=== PATIENT | female | born 1965 | race African-American/Black ===

== ENCOUNTER 2022-05-18 18:50 | Inpatient (IN) | payer OTHER, SELFPAY ==
[2022-05-18 19:43] LABS: Bilirubin Neg (Negative); Blood, Urine 50 (Negative); Clarity Clear (Clear); Glucose, Urine (Dipstick) Normal (Negative); Ketone, Urine 5 mg/dL (Negative); Leukocyte 25 (Negative); Nitrite Negative (Negative); Protein, Urine (Dipstick) 15 mg/dl (Neg-Trace); Specific Gravity, Urine 1.025 (1.002-1.036)
[2022-05-18 19:50] LABS: Bacteria/HPF Rare-Few HPF (None Seen); Mucous/LPF 1+ LPF (<2+); WBC/HPF 0-3 HPF (0-3)
[2022-05-18 19:51] LABS: Amphetamine Not Detected (NotDetected); Barbiturates Screen Not Detected (NotDetected); Benzodiazepine Screen Not Detected (NotDetected); Cocaine Metabolite Screen Not Detected (NotDetected); Methadone Not Detected (NotDetected); Methamphetamine Not Detected (NotDetected); Opiate Screen Not Detected (NotDetected); Oxycodone Screen Not Detected (NotDetected); Phencyclidine (PCP) Not Detected (NotDetected); THC/Cannabinoid Screen Not Detected (NotDetected); Tricyclic Screen Not Detected (NotDetected)
[2022-05-18 21:01] LABS: #Eosinphils 0.4 10x3/uL (0.0-0.5); #Monocytes 0.6 10x3/uL (0.0-1.1); #Neutrophils 2.7 10x3/uL (1.5-8.4); %Basophils 0.7 % (0.0-2.0); %Eosinophils 6.6 % (0.0-6.0); %Lymphocytes 37.4 % (18.0-47.0); %Monocytes 9.9 % (0.0-10.0); %Neutrophils 45.2 % (40.0-75.0); Hemoglobin 11.8 g/dL (12.0-15.5); Mean Corpuscular HGB CONC 32.8 g/dL (32.0-36.0); Mean Corpuscular Hemoglobin 30.6 pg (27.0-33.0); Mean Corpuscular Volume 93.3 fl (81.6-98.3); Mean Platelet Volume 10.4 fl (7.4-10.4); Platelet Count 253 10x3/uL (150-450); RBC Distribution Width 13.5 % (11.5-14.5); Red Blood Cell (RBC) Count 3.86 10x6/uL (3.90-5.03); White Blood Cell (WBC) Count 5.9 10x3/uL (3.5-10.5)
[2022-05-18 21:15] LABS: ALT (SGPT) 12 U/L (8-55); AST (SGOT) 18 U/L (5-34); Acetaminophen Less than 10.0 mcg/mL (10.0-30.0); Albumin 3.8 g/dL (3.5-5.0); Alcohol Less than 10 mg/dL (Less than 10); Alkaline Phosphatase 73 U/L (40-110); Anion Gap 16 mmol/L (10-20); BUN (Urea Nitrogen) 8 mg/dL (9.8-20.1); Bilirubin, Total 0.5 mg/dL (0.2-1.2); Calc. Creatinine Clearance 0 mL/min (70-130); Calcium 9.4 mg/dL (7.8-10.44); Carbon Dioxide 22 mmol/L (22-29); Chloride 106 mmol/L (98-107); Estimated GFR 79; Globulin 3.7 g/dL (2.4-3.5); Glucose 75 mg/dL (70-105); Potassium 3.6 mmol/L (3.5-5.1); Protein, Total 7.5 g/dL (6.0-8.3); Salicylate Less than 8.0 mg/dL (15.0-30.0); Sodium 140 mmol/L (136-145)
[2022-05-18] MEDS ORDERED: Acetaminophen 325 MG TAB PO PRN (22:02)
[2022-05-18] MEDS ORDERED: Guaifenesin DM 100-10/5 ML UDCUP PO PRN (22:02)
[2022-05-18] MEDS ORDERED: Calcium Carbonate 500 MG ChewTAB PO PRN (22:02)
[2022-05-18] MEDS ORDERED: Ketorolac Tromethamine 30 MG/ML VIAL ONE (22:05)
[2022-05-18] MEDS ORDERED: Dextrose 5 % And 0.9 % NaCl 1,000 ML IV SCH (22:15)
[2022-05-18] MEDS ORDERED: Dextrose 50% Abboject 50 ML SYRINGE SLOW IVP SCH (22:15)
[2022-05-18] MEDS ORDERED: Ketorolac Tromethamine 30 MG/ML VIAL IVP SCH (22:30)
[2022-05-18 23:45] VITALS: BMI 38.3
[2022-05-19] MEDS: Ketorolac Tromethamine 30 MG/ML VIAL IVP SCH ×2 (03:11→09:01)
[2022-05-19 04:59] LABS: Anion Gap 14 mmol/L (10-20); BUN (Urea Nitrogen) 8 mg/dL (9.8-20.1); CK (CPK) 144 U/L (29-168); Calc. Creatinine Clearance 145 mL/min (70-130); Calcium 8.7 mg/dL (7.8-10.44); Carbon Dioxide 22 mmol/L (22-29); Chloride 108 mmol/L (98-107); Estimated GFR 94; Glucose 102 mg/dL (70-105); Potassium 3.6 mmol/L (3.5-5.1); Sodium 140 mmol/L (136-145)
[2022-05-19 05:15] LABS: SARS-CoV-2 NAA Rapid Test Not Detected (NotDetected)
[2022-05-19] MEDS: Mometasone/Formoterol 200/5 60 PUFF INH SCH ×2 (07:00→19:30)
[2022-05-19] MEDS: Famotidine/PF 20 mg/2ml Vial SLOW IVP SCH ×2 (09:02→20:51)
[2022-05-19] MEDS: HYDROcodone/Acetaminophen 5/325 mg Tablet PO PRN ×3 (13:28→22:10)
[2022-05-19] MEDS: Montelukast Sodium 10 mg Tablet PO SCH (20:51)
[2022-05-20] MEDS: HYDROcodone/Acetaminophen 5/325 mg Tablet PO PRN ×4 (03:55→18:30)
[2022-05-20 07:00] LABS: ALT (SGPT) 9 U/L (8-55); AST (SGOT) 13 U/L (5-34); Albumin 3.4 g/dL (3.5-5.0); Alkaline Phosphatase 77 U/L (40-110); Anion Gap 13 mmol/L (10-20); BUN (Urea Nitrogen) 6 mg/dL (9.8-20.1); Bilirubin, Total 0.6 mg/dL (0.2-1.2); Calc. Creatinine Clearance 142 mL/min (70-130); Calcium 8.9 mg/dL (7.8-10.44); Carbon Dioxide 26 mmol/L (22-29); Chloride 107 mmol/L (98-107); Estimated GFR 91; Globulin 3.5 g/dL (2.4-3.5); Glucose 95 mg/dL (70-105); Potassium 3.7 mmol/L (3.5-5.1); Protein, Total 6.9 g/dL (6.0-8.3); Sodium 142 mmol/L (136-145)
[2022-05-20] MEDS: Mometasone/Formoterol 200/5 60 PUFF INH SCH ×2 (07:40→19:30)
[2022-05-20] MEDS: Famotidine/PF 20 mg/2ml Vial SLOW IVP SCH ×2 (09:28→20:57)
[2022-05-20] MEDS: Montelukast Sodium 10 mg Tablet PO SCH (20:58)
[2022-05-21] MEDS: HYDROcodone/Acetaminophen 5/325 mg Tablet PO PRN ×5 (00:03→22:43)
[2022-05-21] MEDS: Mometasone/Formoterol 200/5 60 PUFF INH SCH (07:45)
[2022-05-21] MEDS: Famotidine/PF 20 mg/2ml Vial SLOW IVP SCH ×2 (09:37→20:42)
[2022-05-21] MEDS ORDERED: Lorazepam 1 MG TAB PO SCH (12:45)
[2022-05-21] MEDS ORDERED: HYDROcodone/Acetaminophen 5/325 mg Tablet PO SCH (18:45)
[2022-05-21] MEDS: Montelukast Sodium 10 mg Tablet PO SCH (20:42)
[2022-05-21] MEDS ORDERED: Bisacodyl 10 MG SUPP PR PRN (20:55)
[2022-05-21] MEDS ORDERED: Bisacodyl 5 MG TAB PO PRN (20:55)
[2022-05-21] MEDS: Senokot S 8.6-50 MG TAB PO PRN (21:07)
[2022-05-22] MEDS: HYDROcodone/Acetaminophen 5/325 mg Tablet PO PRN ×4 (03:10→20:53)
[2022-05-22] MEDS: Mometasone/Formoterol 200/5 60 PUFF INH SCH (08:00)
[2022-05-22] MEDS: Famotidine/PF 20 mg/2ml Vial SLOW IVP SCH ×2 (09:20→20:54)
[2022-05-22] MEDS: Polyethylene Glycol 3350 17 GM Packet PO SCH (09:20)
[2022-05-22] MEDS ORDERED: traMADol HCl 50 MG TAB PO SCH (13:15)
[2022-05-22] MEDS ORDERED: diphenhydrAMINE 25 MG CAP PO PRN (20:01)
[2022-05-22] MEDS: Montelukast Sodium 10 mg Tablet PO SCH (20:52)
[2022-05-23] MEDS: HYDROcodone/Acetaminophen 5/325 mg Tablet PO PRN ×4 (05:32→20:47)
[2022-05-23] MEDS: Mometasone/Formoterol 200/5 60 PUFF INH SCH ×4 (07:28→19:00)
[2022-05-23] MEDS: Famotidine/PF 20 mg/2ml Vial SLOW IVP SCH ×2 (09:06→20:47)
[2022-05-23] MEDS: Polyethylene Glycol 3350 17 GM Packet PO SCH (09:08)
[2022-05-23] MEDS: Ketorolac Tromethamine 30 MG/ML VIAL IVP PRN ×3 (12:26→23:21)
[2022-05-23] MEDS: Senokot S 8.6-50 MG TAB PO PRN (15:50)
[2022-05-23] MEDS: Montelukast Sodium 10 mg Tablet PO SCH (20:46)
[2022-05-24] MEDS: HYDROcodone/Acetaminophen 5/325 mg Tablet PO PRN (01:26)
[2022-05-24 05:25] LABS: Anion Gap 13 mmol/L (10-20); BUN (Urea Nitrogen) 13 mg/dL (9.8-20.1); Calc. Creatinine Clearance 131 mL/min (70-130); Calcium 9.6 mg/dL (7.8-10.44); Carbon Dioxide 26 mmol/L (22-29); Chloride 103 mmol/L (98-107); Estimated GFR 83; Glucose 99 mg/dL (70-105); Potassium 4.6 mmol/L (3.5-5.1); Sodium 137 mmol/L (136-145)
[2022-05-24] MEDS: Mometasone/Formoterol 200/5 60 PUFF INH SCH ×2 (08:11→18:45)
[2022-05-24] MEDS: Ketorolac Tromethamine 30 MG/ML VIAL IVP PRN ×2 (08:45→14:11)
[2022-05-24] MEDS: Polyethylene Glycol 3350 17 GM Packet PO SCH (08:45)
[2022-05-24] MEDS: Famotidine/PF 20 mg/2ml Vial SLOW IVP SCH ×2 (08:45→21:03)
[2022-05-24] MEDS ORDERED: Preparation H Ointment 28 GM TUBE TOP PRN (13:18)
[2022-05-24] MEDS: Montelukast Sodium 10 mg Tablet PO SCH (21:03)
[2022-05-25 05:30] LABS: Anion Gap 14 mmol/L (10-20); BUN (Urea Nitrogen) 13 mg/dL (9.8-20.1); Calc. Creatinine Clearance 117 mL/min (70-130); Calcium 10.1 mg/dL (7.8-10.44); Carbon Dioxide 25 mmol/L (22-29); Chloride 103 mmol/L (98-107); Estimated GFR 72; Glucose 101 mg/dL (70-105); Potassium 4.4 mmol/L (3.5-5.1); Sodium 138 mmol/L (136-145)
[2022-05-25] MEDS: HYDROcodone/Acetaminophen 5/325 mg Tablet PO PRN (07:06)
[2022-05-25] MEDS: Mometasone/Formoterol 200/5 60 PUFF INH SCH ×2 (07:30→20:00)
[2022-05-25] MEDS: Polyethylene Glycol 3350 17 GM Packet PO SCH ×2 (09:35→09:50)
[2022-05-25] MEDS: Ketorolac Tromethamine 30 MG/ML VIAL IVP PRN (09:47)
[2022-05-25] MEDS: Famotidine/PF 20 mg/2ml Vial SLOW IVP SCH ×2 (09:49→20:59)
[2022-05-25] MEDS: Senokot S 8.6-50 MG TAB PO PRN (09:49)
[2022-05-25] MEDS: Montelukast Sodium 10 mg Tablet PO SCH (20:59)
[2022-05-25] MEDS: traMADol HCl 50 MG TAB PO PRN (21:13)
[2022-05-26] MEDS: traMADol HCl 50 MG TAB PO PRN ×2 (05:16→21:39)
[2022-05-26 05:44] LABS: Anion Gap 15 mmol/L (10-20); BUN (Urea Nitrogen) 18 mg/dL (9.8-20.1); Calc. Creatinine Clearance 116 mL/min (70-130); Calcium 9.7 mg/dL (7.8-10.44); Carbon Dioxide 24 mmol/L (22-29); Chloride 104 mmol/L (98-107); Estimated GFR 71; Glucose 96 mg/dL (70-105); Potassium 4.5 mmol/L (3.5-5.1); Sodium 138 mmol/L (136-145)
[2022-05-26] MEDS: Mometasone/Formoterol 200/5 60 PUFF INH SCH ×2 (07:05→19:42)
[2022-05-26] MEDS: Polyethylene Glycol 3350 17 GM Packet PO SCH (10:12)
[2022-05-26] MEDS: Famotidine/PF 20 mg/2ml Vial SLOW IVP SCH ×2 (10:12→21:39)
[2022-05-26] MEDS: Ondansetron PF 4 MG/2 ML Vial IVP PRN (16:16)
[2022-05-26] MEDS: Montelukast Sodium 10 mg Tablet PO SCH (21:39)
[2022-05-27] MEDS: Ondansetron PF 4 MG/2 ML Vial IVP PRN ×2 (04:27→14:33)
[2022-05-27 05:03] LABS: Anion Gap 15 mmol/L (10-20); BUN (Urea Nitrogen) 20 mg/dL (9.8-20.1); Calc. Creatinine Clearance 105 mL/min (70-130); Calcium 9.6 mg/dL (7.8-10.44); Carbon Dioxide 26 mmol/L (22-29); Chloride 102 mmol/L (98-107); Estimated GFR 64; Glucose 93 mg/dL (70-105); Potassium 4.5 mmol/L (3.5-5.1); Sodium 138 mmol/L (136-145)
[2022-05-27] MEDS: Mometasone/Formoterol 200/5 60 PUFF INH SCH ×2 (08:05→21:20)
[2022-05-27] MEDS: traMADol HCl 50 MG TAB PO PRN (08:32)
[2022-05-27] MEDS: Polyethylene Glycol 3350 17 GM Packet PO SCH (08:32)
[2022-05-27] MEDS: Famotidine/PF 20 mg/2ml Vial SLOW IVP SCH (08:33)
[2022-05-27 15:39] VITALS: BP 113/58; TEMP 97.2
== END 2022-05-27 15:45 | disposition home health service (06) | DRG 89 ==
LOC: CSHERS 18:50 → CSHTELE 23:22 → OBSVTOIN 05-20 10:20
PROVIDERS: ADMIT Student in an Organized Health Care Education/Training Program; ATTEND Internal Medicine
DX: S06.0X0A Concussion without loss of consciousness, initial encounter (principal); G93.49 Other encephalopathy; R47.01 Aphasia; Z20.822 Contact with and (suspected) exposure to COVID-19; W01.0XXA Fall on same level from slipping, tripping and stumbling without subsequent striking against object, initial encounter; J44.9 Chronic obstructive pulmonary disease, unspecified; S70.02XA Contusion of left hip, initial encounter; R41.3 Other amnesia; J45.40 Moderate persistent asthma, uncomplicated; S80.02XA Contusion of left knee, initial encounter; F41.9 Anxiety disorder, unspecified; K59.00 Constipation, unspecified; Y92.59 Other trade areas as the place of occurrence of the external cause; Z79.899 Other long term (current) drug therapy; Z90.49 Acquired absence of other specified parts of digestive tract
CPT/HCPCS: 36415; 36416; 70450; 70551; 71045; 72170; 72192; 80048; 80053; 80306; 80307; 81003; 81015; 82550; 83605; 84484; 85025; 93005; 94760; 95816; 95819; 95957; 96374; 96375; 96376; G0378; J1885; J2405; J7042; S0028; U0002; U0003; U0005